=== PATIENT | male | born 1950 | race Caucasian/White ===

== ENCOUNTER 2023-08-08 15:56 | Emergency (ER) | payer OTHER, MEDICARE ==
[~2023-08-08] VITALS: Ht 177.8 cm; Wt 90.0 kg
[2023-08-08 16:03] VITALS: BP 141/55; PULSE 63; RESP 18; TEMP 98; O2SAT 97
[2023-08-08] MEDS ORDERED: TETanus/Pertussis (Acell)/Diphther VAC/PF (Tdap-Adult) 0.5ml syringe IMVAC ONE (17:10)
[2023-08-08] MEDS ORDERED: bacitracin 15gm ointment TP ONE (17:10)
[2023-08-08] MEDS ORDERED: LIDOcaine 1% W/epiNEPHrine 1:100,000 20ml vial SQ ONE (17:10)
== END 2023-08-08 18:10 | disposition home or self-care (01) ==
LOC: ER 15:58
DX: S81.811A Laceration without foreign body, right lower leg, initial encounter (principal); X58.XXXA Exposure to other specified factors, initial encounter; Y93.89 Activity, other specified; Y92.89 Other specified places as the place of occurrence of the external cause; Y99.8 Other external cause status
CPT/HCPCS: 12002; 73590; 90471; 90715; 99283